=== PATIENT | female | born 1950 | race Hispanic/Latino ===

== ENCOUNTER → 2018-04-11 | Outpatient (CLI) | payer OTHER | END | disposition home or self-care (01) | LOC: OIH 10:35 | PROVIDERS: ATTEND Family Medicine | DX: M25.572 Pain in left ankle and joints of left foot (principal); M25.531 Pain in right wrist | CPT/HCPCS: 73110; 73610 ==

== ENCOUNTER → 2019-09-27 | Outpatient (CLI) | payer OTHER | END | disposition home or self-care (01) | LOC: OIH 13:44 | PROVIDERS: ATTEND Family Medicine | DX: J44.9 Chronic obstructive pulmonary disease, unspecified (principal) | CPT/HCPCS: 71046 ==

== ENCOUNTER → 2020-09-23 | Outpatient (CLI) | payer OTHER | END | disposition home or self-care (01) | LOC: RAH 09:47 | PROVIDERS: ATTEND Family Medicine | DX: I07.1 Rheumatic tricuspid insufficiency (principal); I20.8 Other forms of angina pectoris | CPT/HCPCS: 93306; 93356 ==

== ENCOUNTER → 2021-10-23 | Outpatient (CLI) | payer OTHER | END | disposition home or self-care (01) | LOC: OIH 07:59 | PROVIDERS: ATTEND Family Medicine | DX: S52.615A Nondisplaced fracture of left ulna styloid process, initial encounter for closed fracture (principal); X58.XXXA Exposure to other specified factors, initial encounter; Y93.89 Activity, other specified; Y92.89 Other specified places as the place of occurrence of the external cause; Y99.8 Other external cause status | CPT/HCPCS: 73100 ==

== ENCOUNTER → 2024-10-16 | Outpatient (CLI) | payer OTHER ==
--- NOTE | 2024-10-16 17:15 | HMCSR ---
APPROVED REPORT EXAM: Two-dimensional and M-mode echocardiogram with Doppler and color Doppler. INDICATION ICD: R06.02 Shortness of breath, R07.9 2D Dimensions RVDd3.3 cmLVEF(%)53.5 (>50%)LVED Vol(simp.)74.6 mL IVSd0.8 (0.7-1.1cm)FS(%)27 %LVES Vol(simp.)28.7 mL LVDd3.7 (3.8-5.6cm)LA (2D)4.2 (1.6-4.0cm)LVEF(%, simp.)62 % PWd0.9 (0.7-1.1cm)Ao Root(2D)2.8 (2.0-3.7cm)LA ESV INDEX (4CH)22.10 mL/m2 IVSs1.1 cmLVOT diam2.1 (1.8-2.4cm)LA ESV INDEX (2CH)20.90 mL/m2 LVDs2.7 (2.5-4.0cm)LA ESV INDEX (BP)20.60 mL/m2 PWs1.2 cm M-Mode Dimensions EPSS0.4 cm LA (MM)4.2 (1.6-4.0cm) Ao Root(MM)2.8 (2.0-3.7cm) Aortic Valve AoV VTI0.3 mAo Mean GR3.0 mmHgLVOT VTI0.21 m TED (VMAX)2.6 cm2AVA (VTI) 2.6 cm2 Mitral Valve MV E Vmax71.3 cm/sDECEL Wjkt884 ms MV A Vmax80.5 cm/sP 1/2 T57 ms E/A ratio0.9MVA (PHT)3.9 cm2 MR Max PG36 mmHg TDI E/E' Ooedzp09.8E/E' Nztsplj13.0 Medial E' Peak V3.60 cm/sLateral E' Peak V6.50 cm/s Pulmonary Valve PV VTI0.19 mPV Mean GR1 mmHg Tricuspid Valve TR Vmax2.1 m/s TR Peak GR17.0 mmHg Left Ventricle The left ventricle is normal size. There is normal left ventricular wall thickness. The LVEF is 55-60 %. Indeterminate diastolic dysfunction. Right Ventricle The right ventricle is normal size. The right ventricular systolic function is normal. Atria The left atrium size is normal. The right atrium size is normal. Aortic Valve The aortic valve is normal in structure. No aortic regurgitation is present. There is no aortic valvu lar stenosis. Mitral Valve The mitral valve is normal in structure. There is trace mitral valve regurgitation noted. There is no mitral valve stenosis. Tricuspid Valve The tricuspid valve is normal in structure. There is no tricuspid valve regurgitation noted. Pulmonic Valve The pulmonary valve is normal in structure. There is no pulmonic valvular regurgitation. Great Vessels The aortic root is normal in size. The IVC is normal in size and collapses <50% with inspiration. Pericardium There is no pericardial effusion. Other Information Quality : Good Conclusion The left ventricle is normal size. The LVEF is 55-60%. Indeterminate diastolic dysfunction. The right ventricle is normal size. The right ventricular systolic function is normal. The left atrium size is normal. The right atrium size is normal. No valvular pathology. There is no pericardial effusion.
== END | disposition home or self-care (01) ==
LOC: RAH 11:00
PROVIDERS: ATTEND Family Medicine
DX: R07.9 Chest pain, unspecified (principal); R06.02 Shortness of breath
CPT/HCPCS: 93306